=== PATIENT | female | born 1970 | race Caucasian/White ===

== ENCOUNTER 2020-07-14 09:30 | Outpatient (CLI) | payer BC, MEDICARE ==
--- NOTE | 2020-07-14 10:42 | MMO ---
Bilateral MAMMO Bilat Diag [facility]. CLINICAL HISTORY: Patient is 50 years old and is seen for diagnostic exam,palpable abnormality and pain in the right breast. The patient has no family history of breast cancer. The patient has no personal history of cancer. VIEWS: The views performed were: bilateral craniocaudal with tomosynthesis; bilateral mediolateral oblique with tomosynthesis; and bilateral mediolateral with tomosynthesis. FILMS COMPARED: The present examination has been compared to prior imaging studies performed at [facility] on 03/06/2014 and 07/14/2020. This study has been interpreted with the assistance of computer-aided detection. MAMMOGRAM FINDINGS: There are scattered fibroglandular densities. Finding 1: There are benign appearing calcifications seen in the right breast. No abnormality at site of palpable concern. See ultrasound report. Finding 2: 3 mm nodule retroareolar left breast. See ultrasound report. IMPRESSION: FINDING 1: CALCIFICATIONS IN THE RIGHT BREAST ARE BENIGN. FINDING 2: FINDING IN THE LEFT BREAST IS PROBABLY BENIGN. FOLLOW-UP IN 6 MONTHS IS RECOMMENDED. THE RESULTS OF THIS EXAM WERE SENT TO THE PATIENT. ACR BI-RADS Category 3 - Probably benign finding - short interval follow-up suggested. [facility] will notify the patient of the need for additional imaging services. MAMMOGRAPHY NOTE: 1. A negative mammogram report should not delay a biopsy if a dominant of clinically suspicious mass is present. 2. Approximately 10% to 15% of breast cancers are not detected by mammography. 3. Adenosis and dense breasts may obscure an underlying neoplasm. Reported by: LAYA COOL MD Electonically Signed: [id number]
--- NOTE | 2020-07-14 12:53 | ULT ---
ULTRASOUND RIGHT BREAST: INDICATION: Ultrasound of the upper right breast was performed to assess a palpable abnormality. No mammographic abnormality was present at the site at palpable concern. FINDINGS: No sonographic abnormality is seen at the area of palpable concern. IMPRESSION: The mammogram and ultrasound findings are BIRADS 1 negative. POS: OFF
--- NOTE | 2020-07-14 12:56 | ULT ---
ULTRASOUND LEFT BREAST: INDICATION: Ultrasound of the left breast was performed to assess a tiny nodular density is seen in the retroareo lar region of the left breast on mammogram. FINDINGS: Ultrasound does confirm a tiny nodular lesion at 6 o'clock retroareolar region measuring approximatel y 3 mm. This circumscribed and hypoechoic. It has a benign appearance. Considerations include smal l lymph node or small complex cyst. Recommend 6-month followup with repeat left breast mammogram and ultrasound in 6 months. IMPRESSION: BIRADS 3, probably benign. Recommend 6-month followup left breast mammogram and ultrasound exam. Findings and recommendations were discussed with the patient. CODE CR POS: OFF
== END 2020-07-14 09:31 | disposition home or self-care (01) ==
LOC: BICMAMMO 09:30
PROVIDERS: ATTEND Specialist
DX: N60.11 Diffuse cystic mastopathy of right breast (principal)
CPT/HCPCS: 77066; G0279

== ENCOUNTER 2021-01-27 09:22 | Outpatient (CLI) | payer BC, MEDICARE | END 2021-01-27 09:23 | disposition home or self-care (01) | LOC: BICMAMMO 09:22 | PROVIDERS: ATTEND Specialist | DX: N63.25 Unspecified lump in the left breast, overlapping quadrants (principal) | CPT/HCPCS: G0279 ==

== ENCOUNTER → 2021-04-16 | Day surgery (SDC) | payer BC, MEDICARE | LOC: BICULT 12:53 | PROVIDERS: ATTEND Surgery | PROC: 0H95XZX Drainage of Chest Skin, External Approach, Diagnostic (ICD-10-PCS; principal; 2021-04-16) | DX: N63.25 Unspecified lump in the left breast, overlapping quadrants (principal) | CPT/HCPCS: 19083; 88305 ==

== ENCOUNTER 2021-07-03 10:15 | Outpatient (CLI) | payer MEDICARE, BC | END 2021-07-03 10:16 | disposition home or self-care (01) | LOC: BICRAD 10:15 | PROVIDERS: ATTEND Specialist | DX: M54.2 Cervicalgia (principal); M47.812 Spondylosis without myelopathy or radiculopathy, cervical region | CPT/HCPCS: 72040 ==